=== PATIENT | male | born 1955 | race Caucasian/White ===

== ENCOUNTER → 2024-08-19 | Day surgery (SDC) | payer MEDICARE ==
[2024-08-14 10:39] LABS: BASOPHILS % (AUTO) 0.8 % (0-1); EOSINOPHILS # (AUTO) 0.6 X10'3 (0-0.9); EOSINOPHILS % (AUTO) 10.1 % (0-6); LYMPHOCYTES # (AUTO) 1.6 X10'3 (1.1-4.8); LYMPHOCYTES % (AUTO) 29.8 % (21-51); MEAN CORPUSCULAR HEMOGLOBIN 31.8 PG (27.0-31.0); MEAN CORPUSCULAR HGB CONC 34.6 g/dL (33.0-36.5); MEAN CORPUSCULAR VOLUME 92.1 FL (78-98); MEAN PLATELET VOLUME 6.1 FL (7.4-10.4); MONOCYTES # (AUTO) 0.6 X10'3 (0-0.9); MONOCYTES % (AUTO) 11.8 % (2-12); NEUTROPHILS # (AUTO) 2.6 X10'3 (1.8-7.7); NEUTROPHILS % (AUTO) 47.5 % (42-75); PRE OP HEMATOCRIT 47.4 % (42.0-52.0); PRE OP HEMOGLOBIN 16.4 g/dL (14.0-17.9); PRE OP PLATELET COUNT 263 X10'3 (140-440); PRE OP WHITE BLOOD COUNT 5.4 10'3 (4.8-10.8); RED BLOOD COUNT 5.15 X10'6 (4.70-6.10)
[2024-08-14 10:54] LABS: ALBUMIN 3.9 G/DL (3.4-5.0); ALBUMIN/GLOBULIN RATIO 1.2 (1.1-1.5); ALKALINE PHOSPHATASE 62 IU/L (46-116); BLOOD UREA NITROGEN 12 MG/DL (7-18); CALCIUM 8.8 MG/DL (8.5-10.1); CHLORIDE 105 MMOL/L (99-107); CREATININE 0.92 MG/DL (0.60-1.10); PRE OP ALT 28 U/L (30-65); PRE OP ANION GAP 8 (8-16); PRE OP AST 20 U/L (10-37); PRE OP BILIRUB, TOTAL 0.6 MG/DL (0.0-1.0); PRE OP GLUCOSE 102 MG/DL (70-104); PRE OP SODIUM 141 MMOL/L (135-145); TOTAL CARBON DIOXIDE 28.5 MMOL/L (24-32); TOTAL PROTEIN 7.1 G/DL (6.4-8.2); eGFR 81 ML/MIN
[2024-08-19] VITALS (20 sets, daily range): BP systolic 92–119; BP diastolic 54–76; PULSE 66–88; RESP 10–20; TEMP 97.9; O2SAT 94–98
[~2024-08-19] VITALS: Ht 177.8 cm; Wt 83.1 kg
[~2024-08-19] MED LIST: ACET-2119 PO; ALBU18HF2; BUPIVAcaine 2.5mg/ml inj 50ml vial (contains preservative) ONE; IBUP-2697 PO; LIDOcaine 1% 30ml preserv. free vial ONE; LOVA40TA2 PO; UMEC1DIS INH; acetaminophen 1,000mg/100ml IV 100 ML IV ONE; dexamethasone sod phosphate 4mg/ml inj. ONE; fentaNYL/PF 50MCG/1 ML 2ML syringe ONE; glycopyrrolate 0.2mg/ml inj ONE; meperidine/PF 25mg/ml syringe IV PRN; midazolam 1 mg/ML 2ml injection ONE; morphine 2 MG/ML inj. syringe IV PRN; morphine 4 MG/ML inj SYRINge IV PRN; neostigmine methylsulfate 1 MG/ML 10ml vial ONE; ondansetron/PF 4mg/2ml inj IV PRN; ondansetron/PF 4mg/2ml inj ONE; proCHLORperazine 10 MG/2 ml inj IV PRN; propofol inj 20 ML IV ONE; ringers solution, lacted 1,000 ML IV SCH; rocuronium 10mg/ml inj IV ONE
[2024-08-19] MEDS: ceFAZolin 2gm in dextrose, iso 50 ML IV ONE (05:52)
[2024-08-19] MEDS: ringers solution, lacted 1,000 ML IV SCH (06:09)
[2024-08-19] MEDS: tamsulosin 0.4mg capsule PO STA (06:09)
[2024-08-19] MEDS: famotidine 20mg tablet PO ONE (06:09)
[2024-08-19] MEDS: BUPIVAcaine 2.5mg/ml inj 50ml vial (contains preservative) SQ ONE (07:47)
[2024-08-19] MEDS: meperidine/PF 25mg/ml syringe IV PRN (09:14)
[2024-08-19] MEDS: HYDROcodone/acetaminophen 5mg/325mg tablet PO PRN (11:52)
[2024-08-19] MEDS: LidoCAINE 2% Topical Jelly 11mL syringe (UROJET) TOP STA (12:51)
== END | disposition home or self-care (01) ==
LOC: PAS 05:29
PROVIDERS: ATTEND Surgery
DX: K40.90 Unilateral inguinal hernia, without obstruction or gangrene, not specified as recurrent (principal); K42.9 Umbilical hernia without obstruction or gangrene; Z79.1 Long term (current) use of non-steroidal anti-inflammatories (NSAID); Z79.899 Other long term (current) drug therapy; Z88.2 Allergy status to sulfonamides; Z88.5 Allergy status to narcotic agent; Z88.1 Allergy status to other antibiotic agents
CPT/HCPCS: 36415; 49591; 49650; 80053; 82948; 85025; A4215; A4314; A4618; C1781; J0131; J0690; J1100; J2003; J2175; J2250; J2405; J2704; J2710; J3010; J3490; J7030; J7120; Z7506; Z7508; Z7512; Z7610

== ENCOUNTER 2025-01-14 10:15 | Outpatient (CLI) | payer MEDICARE ==
[~2025-01-14 10:15] MED LIST changes: -BUPIVAcaine 2.5mg/ml inj 50ml vial (contains preservative) ONE; -LIDOcaine 1% 30ml preserv. free vial ONE; -acetaminophen 1,000mg/100ml IV 100 ML IV ONE; -dexamethasone sod phosphate 4mg/ml inj. ONE; -fentaNYL/PF 50MCG/1 ML 2ML syringe ONE; -glycopyrrolate 0.2mg/ml inj ONE; -meperidine/PF 25mg/ml syringe IV PRN; -midazolam 1 mg/ML 2ml injection ONE; -morphine 2 MG/ML inj. syringe IV PRN; -morphine 4 MG/ML inj SYRINge IV PRN; -neostigmine methylsulfate 1 MG/ML 10ml vial ONE; -ondansetron/PF 4mg/2ml inj IV PRN; -ondansetron/PF 4mg/2ml inj ONE; -proCHLORperazine 10 MG/2 ml inj IV PRN; -propofol inj 20 ML IV ONE; -ringers solution, lacted 1,000 ML IV SCH; -rocuronium 10mg/ml inj IV ONE
[2025-01-14 10:49] LABS: ABG BASE EXCESS -1.3 mmol/L (-2.0-3.0); ABG HCO3 22.4 mmol/L (21.0-28.0); ABG OXYGEN SATURATION 96.2 % (94.0-98.0); ABG PCO2 (T) 35.1 mmHg (35.0-48.0); ABG PH (T) 7.422 (7.350-7.450); ABG PO2 (T) 84.6 mmHg (83.0-108.0); ALLEN'S TEST POSITIVE; FCOHb 0.6 % (0.5-1.5); FHHb 3.8 % (0.0-5.0); FMetHb 0.1 % (0.0-1.5); FO2Hb 95.5 % (94.0-98.0); MODE ROOM AIR; TOTAL HEMOGLOBIN 16.9 G/dl (13.5-17.5)
[2025-01-14 11:48] VITALS: PULSE 79; RESP 16; O2SAT 95
--- NOTE | 2025-01-14 12:41 | RADIOLOGY REPORT ---
EXAM: DI CHEST,TWO VIEWS CLINICAL HISTORY: SOB,COPD COMPARISON: None TECHNIQUE: Frontal and lateral view of the chest was obtained FINDINGS: Lines and Tubes: None Lungs: No focal consolidation. Pleura: No effusion. No pneumothorax. Cardiomediastinal contours: Unremarkable Bones: No acute osseous abnormality. IMPRESSION: No acute cardiopulmonary disease.
--- NOTE | 2025-01-14 14:18 | PROCEDURE NOTE - Respiratory ---
Procedure Note-Respiratory Providers to Copies To 1: KYLE ROONEY MD Procedure Name: This is a spirometry study dated January 14, 2025. A lung diffusion measurement was also accomplished. There was also a room air blood gas obtained from this patient on the same date. Spirometry measurements: The forced vital capacity is normal. The FEV1 is clearly reduced. The FEV1 ratio is also reduced. All of the measured flow rates show significant reduction. Bronchodilator was not administered as part of the study. Lung diffusion measurement: The DLCO measurement is within normal limits. It is noted that the hemoglobin measurement is in the normal range. Conclusion: This study is abnormal. There is evidence for moderate severity obstructive ventilatory defect. This is consistent with the patient's diagnosis of smoking-related COPD. It is strongly recommended that the patient abstain from cigarette smoking. Bronchodilator therapy should be continued for this patient. We have no previous studies for comparison. The DLCO measurement is within normal limits. A blood gas was drawn from this patient while the patient was breathing room air. The blood pH is normal. The pCO2 is normal. The room air PO2 level is normal. JOSSELYN PEARSON MD January 14, 2025 14:18
== END 2025-01-14 23:59 | disposition home or self-care (01) ==
LOC: RT 10:15
PROVIDERS: ATTEND Internal Medicine Interventional Cardiology
DX: J44.9 Chronic obstructive pulmonary disease, unspecified (principal); R06.02 Shortness of breath
CPT/HCPCS: 36600; 71046; 82803; 85018; 94010; 94729; 94760